=== PATIENT | male | born 1985 | race Caucasian/White ===

== ENCOUNTER 2016-09-22 18:30 | Emergency (ER) | payer OTHER ==
[2016-09-22 19:42] VITALS: TEMP 97.8
--- NOTE | 2016-09-22 19:53 | ED.PDOC ---
History of Present Illness - General Chief Complaint: General Stated Complaint: dizziness Time Seen by Provider: 09/22/16 19:39 Source: patient, RN notes reviewed, Vital Signs reviewed Exam Limitations: no limitations - History of Present Illness Initial Comments: Nithin Sorto 31 y/o male with history of high blood pressure stated while he was at the office bent down to fix a computer had experienced dizziness got diaphoretic so he decided to rest but since then he had been feeling tired , getting sweaty [place] the park with [place].Denies chest pain ,no palpitations,no blurry vision,No nausea vomiting he stated not getting enough sleep recently due to working late.No weakness or blurry vision. Timing/Duration: other - 10 hours ago Improving Factors: nothing Worsening Factors: nothing Associated Symptoms: denies symptoms Allergies/Adverse Reactions: Allergies Penicillins Adverse Reaction (Verified 09/22/16 18:47) Home Medications: Ambulatory Orders Lisinopril 40 mg PO BEDTIME 09/22/16 Review of Systems - Review of Systems Constitutional: States: no symptoms reported EENTM: States: no symptoms reported Respiratory: States: no symptoms reported Cardiology: States: no symptoms reported Gastrointestinal/Abdominal: States: no symptoms reported Genitourinary: States: no symptoms reported Musculoskeletal: States: no symptoms reported Skin: States: no symptoms reported Neurological: States: see HPI Endocrine: States: no symptoms reported Hematologic/Lymphatic: States: no symptoms reported Past Medical History (General) - Patient Medical History Hx Hypertension: Yes Surgical History: cholecystectomy, tonsillectomy - Vaccination History Hx Tetanus, Diphtheria Vaccination: Yes Hx Influenza Vaccination: Yes Hx Pneumococcal Vaccination: No Immunizations Up to Date: No - Social History Hx Alcohol Use: No Hx Substance Use: No - Activities of Daily Living Patient Lives Alone: No - family Family Medical History - Family History Mother Family History: No Known Hx Family Hypertension: Yes - parents Physical Exam - Physical Exam General Appearance: Alert, No apparent distress Eye Exam: bilateral normal Ears, Nose, Throat: hearing grossly normal, normal ENT inspection, normal pharynx Neck: non-tender, full range of motion, supple Respiratory: chest non-tender, lungs clear, normal breath sounds, no respiratory distress, no accessory muscle use Cardiovascular/Chest: normal peripheral pulses, regular rate, rhythm, no edema, no gallop, no JVD, no murmur Peripheral Pulses: radial,right: 2+, radial,left: 2+ Gastrointestinal/Abdominal: normal bowel sounds, non tender, soft Back Exam: normal inspection, no CVA tenderness, no vertebral tenderness Extremity: normal range of motion, non-tender Neurologic: no motor/sensory deficits, alert, normal mood/affect, oriented x 3 Skin Exam: normal color, warm/dry Lymphatic: no adenopathy Progress - Results/Orders Results/Orders: 09/22/16 19:00 EKG STAT Laboratory Results WBC 12.0 K/mm3 (4.8-10.8) H 09/22/16 20:10 RBC 5.27 M/mm3 (4.70-6.10) 09/22/16 20:10 Hgb 14.3 gm/dL (14.0-18.0) 09/22/16 20:10 Hct 43.3 % (42.0-52.0) 09/22/16 20:10 MCV 82.1 fl (80.0-94.0) 09/22/16 20:10 MCH 27.0 pg (27.0-31.0) 09/22/16 20:10 MCHC 32.9 g/dL (33.0-37.0) L 09/22/16 20:10 RDW 13.9 % (11.5-14.5) 09/22/16 20:10 Plt Count 248 K/mm3 (130-400) 09/22/16 20:10 MPV 9.0 fl (7.40-10.4) 09/22/16 20:10 Absolute Neuts (auto) 9.20 K/uL (1.8-6.8) H 09/22/16 20:10 Absolute Lymphs (auto) 1.80 K/uL (1.0-3.4) 09/22/16 20:10 Absolute Monos (auto) 0.80 K/uL (0.2-0.8) 09/22/16 20:10 Absolute Eos (auto) 0.10 K/uL (0.0-0.4) 09/22/16 20:10 Absolute Basos (auto) 0.10 K/uL (0.0-0.1) 09/22/16 20:10 Neutrophils % 76.6 % (42.0-78.0) 09/22/16 20:10 Lymphocytes % 15.1 % (20.0-50.0) L 09/22/16 20:10 Monocytes % 6.8 % (2.0-9.0) 09/22/16 20:10 Eosinophils % 0.8 % (1.0-5.0) L 09/22/16 20:10 Basophils % 0.7 % (0.0-2.0) 09/22/16 20:10 PT 11.8 SECONDS (9.4-12.5) 09/22/16 20:10 INR 1.040 09/22/16 20:10 PTT (SP) 30.9 SECONDS (25.1-36.5) 09/22/16 20:10 Sodium 137 mmol/L (135-145) 09/22/16 20:10 Potassium 4.2 mmol/L (3.6-5.0) 09/22/16 20:10 Chloride 105 mmol/L (101-111) 09/22/16 20:10 Carbon Dioxide 27 mmol/L (21-31) 09/22/16 20:10 Anion Gap 9.2 (12-18) L 09/22/16 20:10 BUN 17 mg/dL (7-18) 09/22/16 20:10 Creatinine 0.70 mg/dL (0.6-1.3) 09/22/16 20:10 BUN/Creatinine Ratio 24.3 (10-20) H 09/22/16 20:10 Random Glucose 95 mg/dL (70-105) 09/22/16 20:10 Serum Osmolality 275.2 mOsm/L (275-295) 09/22/16 20:10 Lactic Acid 0.8 mmol/L (0.5-2.2) 09/22/16 21:05 Calcium 9.0 mg/dL (8.4-10.2) 09/22/16 20:10 Magnesium 2.0 mg/dL (1.8-2.5) 09/22/16 20:10 Total Bilirubin 0.6 mg/dL (0.2-1.0) 09/22/16 20:10 Direct Bilirubin 0.1 mg/dL (0-0.2) 09/22/16 20:10 Indirect Bilirubin 0.5 mg/dL (0.2-0.8) 09/22/16 20:10 AST 20 IU/L (10-42) 09/22/16 20:10 ALT 35 IU/L (10-60) 09/22/16 20:10 Alkaline Phosphatase 70 IU/L (42-121) 09/22/16 20:10 Creatine Kinase 77 IU/L (38-174) 09/22/16 20:10 CK-MB (CK-2) 2.0 ng/mL (0.0-4.4) 09/22/16 20:10 CK-MB (CK-2) % Not Reportable 09/22/16 20:10 Troponin I < 0.02 ng/mL (0.01-0.05) 09/22/16 20:10 Serum Total Protein 7.3 gm/dL (6.4-8.2) 09/22/16 20:10 Albumin 3.8 g/dl (3.2-5.5) 09/22/16 20:10 Monoscreen Negative (NEGATIVE) 09/22/16 20:49 - EKG/XRAY/CT EKG: Sinus, no ST T wave changes XRAY: chest - no acute abnormalities noted Departure - Departure Clinical Impression: Dizziness, nonspecific Time of Disposition: 21:50 Disposition: Discharge to Home or Self Care Condition: Good Departure Forms: ED Discharge - Pt. Copy, Patient Portal Self Enrollment Instructions: DI for Dizziness-Nonvertigo Diet: low fat, low cholesterol, low salt diet Home Medications: Ambulatory Orders Lisinopril 40 mg PO BEDTIME 09/22/16 Additional Instructions: CONTUNUE WITH ALL HOME MEDICATION,FOLLOW UP WITH PRIMARY MD IN ONE WEEK;RETURN TO EMERGENCY ROOM NEEDED
--- NOTE | 2016-09-22 20:33 | RAD ---
EXAM DESCRIPTION: Chest,1 View CLINICAL HISTORY: 31 years Male sob COMPARISON: None. FINDINGS: The cardiac silhouette appears upper normal.. No consolidating infiltrates or pleural effusions. No pneumothorax. IMPRESSION: No acute abnormality is identified. Electronically signed by: aRmos Woodruff MD 09/22/2016 8:31 PM CDT
[2016-09-22 22:20] VITALS: BP 141/91
[2016-09-22 22:21] VITALS: O2SAT 99
== END 2016-09-22 22:21 | disposition home or self-care (01) ==
LOC: ER 18:30
DX: R42 Dizziness and giddiness (principal); I10 Essential (primary) hypertension; Z88.0 Allergy status to penicillin